=== PATIENT | male | born 1975 | race African-American/Black ===

== ENCOUNTER 2022-08-18 17:00 | Inpatient (IN) | payer OTHER ==
[2022-08-18 18:44] VITALS: BMI 25.8
[2022-08-18] MEDS ORDERED: IBUPROFEN 400 MG TABLET (FP) PO PRN (20:20)
[2022-08-18] MEDS ORDERED: MAGNESIUM HYDROX 2400MG/30ML ORAL SUSPENSION 30 ML CUP PO PRN (20:20)
[2022-08-18] MEDS ORDERED: ONDANSETRON *ODT* 4 MG TABLET SL PRN (20:20)
[2022-08-18] MEDS ORDERED: guaiFENesin 200 MG/10 ML 10 ML UNIT-DOSE CUPS PO PRN (20:20)
[2022-08-18] MEDS ORDERED: ACETAMINOPHEN 325 MG TABLET (FP) PO PRN ×2 (20:20)
[2022-08-18] MEDS ORDERED: BENZOCAINE/MENTHOL (CHLORASEPTIC ) LOZENGE MM PRN (20:20)
[2022-08-18] MEDS ORDERED: BISMUTH SUBSALICYLATE 524 MG/30 ML PO PRN (20:20)
[2022-08-18] MEDS ORDERED: P-EPHED 60MG/TRIPROLIDI 2.5MG TABLET PO PRN (20:20)
[2022-08-18] MEDS ORDERED: LOPERAMIDE HCL 2 MG CAPSULE PO PRN (20:20)
[2022-08-18] MEDS ORDERED: DICYCLOMINE HCL 10 MG CAPSULE PO PRN (20:20)
[2022-08-18] MEDS ORDERED: MAGNESIUM CITRATE 300 ML BOTTLE PO PRN (20:20)
[2022-08-18] MEDS ORDERED: MAG HYDROX/AL HYDROX/SIMETH 30 ML UNIT-DOSE CUP PO PRN (20:20)
[2022-08-18] MEDS ORDERED: THIAMINE HCL 100 MG TABLET (FP) PO SCH (22:00)
[2022-08-18] MEDS ORDERED: diazePAM 5 MG TABLET PO SCH (23:00)
[2022-08-19] MEDS: THIAMINE HCL 100 MG TABLET (FP) PO SCH ×2 (01:55→22:39)
[2022-08-19] MEDS: METHOCARBAMOL 500 MG TABLET PO PRN (01:55)
[2022-08-19] MEDS: diazePAM 5 MG TABLET PO SCH ×4 (02:13→19:21)
[2022-08-19] MEDS: IBUPROFEN 600 MG TABLET (FP) PO PRN (02:14)
[2022-08-19] MEDS: PRENATAL VITAMINS W/ FOLIC ACID TABLET (FP) PO SCH (10:05)
[2022-08-19] MEDS: NICOTINE 7 MG/24 HOURS TOPICAL PATCH TD PRN (10:06)
[2022-08-19 10:52] LABS: HEMATOCRIT 34.3 % (35.4-49); HEMOGLOBIN 11.1 GM/dL (11.7-16.9); MCH 31.3 pg (25.7-33.7); MCHC 32.3 g/dl (32.0-35.9); MEAN CELL VOLUME 97.1 fl (80-96); MEAN PLT VOLUME 8.1 fl (7.5-11.1); PLATELET COUNT 460 10^3/uL (134-434); RBC 3.53 M/mm3 (4.00-5.60); RDW 16.2 % (11.9-15.9)
[2022-08-19] MEDS: NICOTINE 10 MG CARTRIDGE (INHALER) IH PRN ×2 (11:12→15:14)
[2022-08-19 11:35] LABS: CALCIUM 9.3 mg/dL (8.5-10.1)
[2022-08-19 11:36] LABS: ALBUMIN 3.4 g/dl (3.4-5.0); BLOOD UREA NITROGEN 16.7 mg/dL (7-18)
[2022-08-19 11:40] LABS: BILIRUBIN,TOTAL 0.3 mg/dL (0.2-1); TOT PROT 6.9 g/dl (6.4-8.2)
[2022-08-19] MEDS ORDERED: TRIMETHOBENZAMIDE HCL 200MG/2ML INJ IM PRN (13:36)
[2022-08-19] MEDS: diazePAM 5 MG TABLET PO PRN (15:12)
[2022-08-19] MEDS: MELATONIN 5 MG TABLETS PO PRN (22:39)
[2022-08-20] MEDS: diazePAM 5 MG TABLET PO SCH ×4 (02:03→22:52)
[2022-08-20] MEDS: NICOTINE 10 MG CARTRIDGE (INHALER) IH PRN ×2 (05:31→13:35)
[2022-08-20] MEDS: PRENATAL VITAMINS W/ FOLIC ACID TABLET (FP) PO SCH (12:04)
[2022-08-20] MEDS: NICOTINE 7 MG/24 HOURS TOPICAL PATCH TD PRN (15:58)
[2022-08-20] MEDS: METHOCARBAMOL 500 MG TABLET PO PRN (17:54)
[2022-08-20] MEDS: hydrOXYzine PAMOATE 25 MG CAPSULE (FP) PO PRN (17:54)
[2022-08-20] MEDS: IBUPROFEN 600 MG TABLET (FP) PO PRN (17:54)
[2022-08-20] MEDS: THIAMINE HCL 100 MG TABLET (FP) PO SCH (22:52)
[2022-08-20] MEDS: MELATONIN 5 MG TABLETS PO PRN (22:52)
[2022-08-21] MEDS: diazePAM 5 MG TABLET PO SCH ×2 (07:16→17:40)
[2022-08-21] MEDS: diazePAM 5 MG TABLET PO PRN (10:44)
[2022-08-21] MEDS: PRENATAL VITAMINS W/ FOLIC ACID TABLET (FP) PO SCH (10:44)
[2022-08-21] MEDS: hydrOXYzine PAMOATE 25 MG CAPSULE (FP) PO PRN ×3 (10:46→20:50)
[2022-08-21] MEDS: NICOTINE 10 MG CARTRIDGE (INHALER) IH PRN (13:00)
[2022-08-21] MEDS: METHOCARBAMOL 500 MG TABLET PO PRN (20:50)
[2022-08-21] MEDS: THIAMINE HCL 100 MG TABLET (FP) PO SCH (21:03)
[2022-08-21] MEDS: MELATONIN 5 MG TABLETS PO PRN (21:03)
[2022-08-21 22:18] VITALS: RESP 18
[2022-08-22] MEDS ORDERED: diazePAM 5 MG TABLET PO ONE (06:00)
[2022-08-22] MEDS: PRENATAL VITAMINS W/ FOLIC ACID TABLET (FP) PO SCH (09:38)
[2022-08-22] MEDS: METHOCARBAMOL 500 MG TABLET PO PRN (09:40)
[2022-08-22] MEDS: NICOTINE 10 MG CARTRIDGE (INHALER) IH PRN (10:26)
[2022-08-22] MEDS: NICOTINE 7 MG/24 HOURS TOPICAL PATCH TD PRN (10:27)
[2022-08-22 13:00] VITALS: BP 124/81; PULSE 104; TEMP 98.1
== END 2022-08-22 13:36 | disposition other institution (70) | DRG 775 ==
LOC: YASAS 17:00 → Y3N 08-19 01:02
PROVIDERS: ADMIT Allergy & Immunology; ATTEND Surgery
PROC: HZ2ZZZZ Detoxification Services for Substance Abuse Treatment (ICD-10-PCS; principal; 2022-08-19)
DX: F10.230 Alcohol dependence with withdrawal, uncomplicated (principal); F17.210 Nicotine dependence, cigarettes, uncomplicated; I10 Essential (primary) hypertension; G62.1 Alcoholic polyneuropathy; S69.81XA Other specified injuries of right wrist, hand and finger(s), initial encounter; S69.82XA Other specified injuries of left wrist, hand and finger(s), initial encounter; Y04.0XXA Assault by unarmed brawl or fight, initial encounter; Y92.239 Unspecified place in hospital as the place of occurrence of the external cause
CPT/HCPCS: 36415; 73030-TC-RT-FY; 73110-TC-LT-FY; 80053; 85027; 86780; C9803-CS; Q0162; U0003; U0005

== ENCOUNTER 2022-08-23 09:07 | Inpatient (IN) | payer OTHER ==
[2022-08-23 09:37] VITALS: BMI 26.4
[2022-08-23] MEDS ORDERED: MAGNESIUM CITRATE 300 ML BOTTLE PO PRN (10:22)
[2022-08-23] MEDS ORDERED: LOPERAMIDE HCL 2 MG CAPSULE PO PRN (10:22)
[2022-08-23] MEDS ORDERED: MAGNESIUM HYDROX 2400MG/30ML ORAL SUSPENSION 30 ML CUP PO PRN (10:22)
[2022-08-23] MEDS ORDERED: MAG HYDROX/AL HYDROX/SIMETH 30 ML UNIT-DOSE CUP PO PRN (10:22)
[2022-08-23] MEDS ORDERED: guaiFENesin 200 MG/10 ML 10 ML UNIT-DOSE CUPS PO PRN (10:22)
[2022-08-23] MEDS ORDERED: P-EPHED 60MG/TRIPROLIDI 2.5MG TABLET PO PRN (10:22)
[2022-08-23] MEDS ORDERED: METHYL SALICYLATE/MENTHOL OINT 30 GM TUBE TP PRN (10:28)
[2022-08-23] MEDS ORDERED: COLLOIDAL OATMEAL 1 BAR EACH TP PRN (10:34)
[2022-08-23] MEDS ORDERED: hydrOXYzine PAMOATE 25 MG CAPSULE (FP) PO ONE (11:47)
[2022-08-23] MEDS ORDERED: IBUPROFEN 400 MG TABLET (FP) PO ONE (11:47)
[2022-08-23] MEDS: IBUPROFEN 400 MG TABLET (FP) PO PRN (11:59)
[2022-08-23] MEDS: hydrOXYzine PAMOATE 25 MG CAPSULE (FP) PO PRN (12:00)
[2022-08-23] MEDS: NICOTINE 21 MG/24 HOURS TOPICAL PATCH TD SCH (14:47)
[2022-08-23] MEDS: THIAMINE HCL 100 MG TABLET (FP) PO SCH (21:08)
[2022-08-23] MEDS: MELATONIN 5 MG TABLETS PO SCH (21:08)
[2022-08-24 03:56] LABS: EPI CELLS 5 /uL (0-25.1); HYALINE CASTS 0 /uL (0-3.1); PH,URINE 5.5 (5.0-8.0); URINE APPEARANCE CLEAR; URINE BACTERIA 28 /uL (0-1359); URINE BILIRUBIN NEGATIVE (NEGATIVE); URINE COLOR YELLOW; URINE GLUCOSE (UA) NEGATIVE (NEGATIVE); URINE KETONE NEGATIVE (NEGATIVE); URINE LEUK ESTERASE TRACE (NEGATIVE); URINE NITRITE NEGATIVE (NEGATIVE); URINE PROTEIN NEGATIVE (NEGATIVE); URINE RBC 0 /uL (0-23.9); URINE UROBILINOGEN 0.2 mg/dL (0.2-1.0); URINE WBC 13 /uL (0-25.8)
[2022-08-24] MEDS: NICOTINE 21 MG/24 HOURS TOPICAL PATCH TD SCH (09:06)
[2022-08-24] MEDS: PRENATAL VITAMINS W/ FOLIC ACID TABLET (FP) PO SCH (09:06)
[2022-08-24 12:23] LABS: ALBUMIN 3.6 g/dl (3.4-5.0); BLOOD UREA NITROGEN 16.1 mg/dL (7-18); CALCIUM 9.5 mg/dL (8.5-10.1)
[2022-08-24 12:27] LABS: BILIRUBIN,TOTAL 0.2 mg/dL (0.2-1); CREATININE 0.8 mg/dL (0.55-1.3); TOT PROT 7.2 g/dl (6.4-8.2)
[2022-08-24 12:32] LABS: HEMATOCRIT 33.7 % (35.4-49); HEMOGLOBIN 11.4 GM/dL (11.7-16.9); MCH 32.5 pg (25.7-33.7); MCHC 33.7 g/dl (32.0-35.9); MEAN CELL VOLUME 96.4 fl (80-96); MEAN PLT VOLUME 8.7 fl (7.5-11.1); PLATELET COUNT 429 10^3/uL (134-434); RDW 15.5 % (11.9-15.9); WHITE BLOOD COUNT 6.1 K/mm3 (4.0-10.0)
[2022-08-24 14:49] LABS: SYPHILIS W/ RPR CONF NON-REACTIVE (NONREACTIVE)
[2022-08-24] MEDS: NICOTINE 10 MG CARTRIDGE (INHALER) IH PRN (15:42)
[2022-08-24] MEDS: MELATONIN 5 MG TABLETS PO SCH (23:57)
[2022-08-24] MEDS: THIAMINE HCL 100 MG TABLET (FP) PO SCH (23:58)
[2022-08-25] MEDS: hydrOXYzine PAMOATE 25 MG CAPSULE (FP) PO PRN ×2 (01:29→21:17)
[2022-08-25] MEDS: IBUPROFEN 400 MG TABLET (FP) PO PRN (01:33)
[2022-08-25] MEDS ORDERED: COLLOIDAL OATMEAL 1 EACH PACKET TP ONE (08:23)
[2022-08-25] MEDS: NICOTINE 10 MG CARTRIDGE (INHALER) IH PRN (09:04)
[2022-08-25] MEDS: PRENATAL VITAMINS W/ FOLIC ACID TABLET (FP) PO SCH (09:49)
[2022-08-25] MEDS: NICOTINE 21 MG/24 HOURS TOPICAL PATCH TD SCH (09:50)
[2022-08-25] MEDS: ACETAMINOPHEN 325 MG TABLET (FP) PO PRN ×2 (09:51→21:18)
[2022-08-25 16:19] LABS: HIV INTERPRETATION NEGATIVE (NEGATIVE)
[2022-08-25] MEDS: MELATONIN 5 MG TABLETS PO SCH (21:16)
[2022-08-25] MEDS: THIAMINE HCL 100 MG TABLET (FP) PO SCH (21:16)
[2022-08-26] MEDS: PRENATAL VITAMINS W/ FOLIC ACID TABLET (FP) PO SCH (09:11)
[2022-08-26] MEDS: NICOTINE 21 MG/24 HOURS TOPICAL PATCH TD SCH (09:11)
[2022-08-26] MEDS: ACETAMINOPHEN 325 MG TABLET (FP) PO PRN (09:12)
[2022-08-26] MEDS ORDERED: FUROSEMIDE 20 MG TABLET (FP) PO SCH (14:00)
[2022-08-26] MEDS: NICOTINE 10 MG CARTRIDGE (INHALER) IH PRN ×2 (17:49→22:17)
[2022-08-26] MEDS: THIAMINE HCL 100 MG TABLET (FP) PO SCH (22:15)
[2022-08-26] MEDS: MELATONIN 5 MG TABLETS PO SCH (22:16)
[2022-08-26] MEDS: hydrOXYzine PAMOATE 25 MG CAPSULE (FP) PO PRN (22:16)
[2022-08-27] MEDS: IBUPROFEN 400 MG TABLET (FP) PO PRN (07:37)
[2022-08-27] MEDS: NICOTINE 21 MG/24 HOURS TOPICAL PATCH TD SCH (10:23)
[2022-08-27] MEDS: METOPROLOL TARTRATE 50 MG TABLET (FP) PO SCH (10:24)
[2022-08-27] MEDS: PRENATAL VITAMINS W/ FOLIC ACID TABLET (FP) PO SCH (10:24)
[2022-08-27] MEDS: NICOTINE 10 MG CARTRIDGE (INHALER) IH PRN (10:25)
[2022-08-27] MEDS: MELATONIN 5 MG TABLETS PO SCH (21:14)
[2022-08-27] MEDS: hydrOXYzine PAMOATE 25 MG CAPSULE (FP) PO PRN (21:14)
[2022-08-27] MEDS: THIAMINE HCL 100 MG TABLET (FP) PO SCH (21:14)
[2022-08-28] MEDS: NICOTINE 21 MG/24 HOURS TOPICAL PATCH TD SCH (10:10)
[2022-08-28] MEDS: METOPROLOL TARTRATE 50 MG TABLET (FP) PO SCH (10:10)
[2022-08-28] MEDS: PRENATAL VITAMINS W/ FOLIC ACID TABLET (FP) PO SCH (10:10)
[2022-08-28] MEDS: IBUPROFEN 400 MG TABLET (FP) PO PRN (10:17)
[2022-08-28] MEDS: NICOTINE 10 MG CARTRIDGE (INHALER) IH PRN (10:19)
[2022-08-28] MEDS ORDERED: LIDOCAINE 5% TOPICAL PATCH TP SCH (11:30)
[2022-08-28] MEDS: hydrOXYzine PAMOATE 25 MG CAPSULE (FP) PO PRN ×2 (13:19→21:27)
[2022-08-28] MEDS: MELATONIN 5 MG TABLETS PO SCH (21:27)
[2022-08-28] MEDS: THIAMINE HCL 100 MG TABLET (FP) PO SCH (21:27)
[2022-08-28] MEDS ORDERED: LIDOCAINE PATCH REMOVAL MC SCH (22:00)
[2022-08-29] MEDS: IBUPROFEN 400 MG TABLET (FP) PO PRN (06:37)
[2022-08-29] MEDS ORDERED: LIDOCAINE PATCH REMOVAL MC SCH ×3 (08:40→22:00)
[2022-08-29] MEDS: NICOTINE 21 MG/24 HOURS TOPICAL PATCH TD SCH (09:59)
[2022-08-29] MEDS ORDERED: LIDOCAINE 5% TOPICAL PATCH TP SCH ×3 (10:00→12:00)
[2022-08-29] MEDS: METOPROLOL TARTRATE 50 MG TABLET (FP) PO SCH (10:00)
[2022-08-29] MEDS: PRENATAL VITAMINS W/ FOLIC ACID TABLET (FP) PO SCH (10:00)
[2022-08-29] MEDS: ACETAMINOPHEN 325 MG TABLET (FP) PO PRN (10:01)
[2022-08-29] MEDS: NICOTINE 10 MG CARTRIDGE (INHALER) IH PRN ×2 (10:02→21:12)
[2022-08-29] MEDS: LIDOCAINE PATCH REMOVAL MC SCH (21:11)
[2022-08-29] MEDS: DOCUSATE SODIUM 100 MG CAPSULE (FP) PO PRN (21:11)
[2022-08-29] MEDS: MELATONIN 5 MG TABLETS PO SCH (21:11)
[2022-08-29] MEDS: hydrOXYzine PAMOATE 25 MG CAPSULE (FP) PO PRN (21:11)
[2022-08-29] MEDS: THIAMINE HCL 100 MG TABLET (FP) PO SCH (21:11)
[2022-08-30] MEDS: LIDOCAINE 5% TOPICAL PATCH TP SCH (10:00)
[2022-08-30] MEDS: NICOTINE 21 MG/24 HOURS TOPICAL PATCH TD SCH (10:00)
[2022-08-30] MEDS: METOPROLOL TARTRATE 50 MG TABLET (FP) PO SCH (10:00)
[2022-08-30] MEDS: PRENATAL VITAMINS W/ FOLIC ACID TABLET (FP) PO SCH (10:01)
[2022-08-30] MEDS: ACETAMINOPHEN 325 MG TABLET (FP) PO PRN (10:02)
[2022-08-30] MEDS: hydrOXYzine PAMOATE 25 MG CAPSULE (FP) PO PRN ×2 (10:02→21:17)
[2022-08-30] MEDS: NICOTINE 10 MG CARTRIDGE (INHALER) IH PRN ×2 (10:03→21:19)
[2022-08-30] MEDS: MELATONIN 5 MG TABLETS PO SCH (21:16)
[2022-08-30] MEDS: LIDOCAINE PATCH REMOVAL MC SCH (21:16)
[2022-08-30] MEDS: SENNOSIDES 8.6MG TABLET (FP) PO PRN (21:17)
[2022-08-30] MEDS: THIAMINE HCL 100 MG TABLET (FP) PO SCH (21:17)
[2022-08-30] MEDS: IBUPROFEN 400 MG TABLET (FP) PO PRN (21:18)
[2022-08-31] MEDS: NICOTINE 10 MG CARTRIDGE (INHALER) IH PRN ×2 (08:51→17:33)
[2022-08-31] MEDS: METOPROLOL TARTRATE 50 MG TABLET (FP) PO SCH (09:52)
[2022-08-31] MEDS: PRENATAL VITAMINS W/ FOLIC ACID TABLET (FP) PO SCH (09:52)
[2022-08-31] MEDS: LIDOCAINE 5% TOPICAL PATCH TP SCH (09:52)
[2022-08-31] MEDS: NICOTINE 21 MG/24 HOURS TOPICAL PATCH TD SCH (09:52)
[2022-08-31] MEDS: IBUPROFEN 400 MG TABLET (FP) PO PRN ×2 (09:56→21:24)
[2022-08-31] MEDS: THIAMINE HCL 100 MG TABLET (FP) PO SCH (21:25)
[2022-08-31] MEDS: SENNOSIDES 8.6MG TABLET (FP) PO PRN (21:25)
[2022-08-31] MEDS: hydrOXYzine PAMOATE 25 MG CAPSULE (FP) PO PRN (21:25)
[2022-08-31] MEDS: LIDOCAINE PATCH REMOVAL MC SCH (21:27)
[2022-08-31] MEDS: MIRTAZAPINE 15 MG TABLET (FP) PO SCH (21:27)
[2022-08-31] MEDS: MELATONIN 5 MG TABLETS PO SCH (23:05)
[2022-09-01] MEDS: NICOTINE 21 MG/24 HOURS TOPICAL PATCH TD SCH (09:48)
[2022-09-01] MEDS: LIDOCAINE 5% TOPICAL PATCH TP SCH (09:48)
[2022-09-01] MEDS: METOPROLOL TARTRATE 50 MG TABLET (FP) PO SCH (09:48)
[2022-09-01] MEDS: PRENATAL VITAMINS W/ FOLIC ACID TABLET (FP) PO SCH (09:48)
[2022-09-01] MEDS: IBUPROFEN 400 MG TABLET (FP) PO PRN (09:49)
[2022-09-01] MEDS: NICOTINE 10 MG CARTRIDGE (INHALER) IH PRN (18:20)
[2022-09-01] MEDS: DOCUSATE SODIUM 100 MG CAPSULE (FP) PO PRN (21:11)
[2022-09-01] MEDS: MIRTAZAPINE 15 MG TABLET (FP) PO SCH (21:12)
[2022-09-01] MEDS: THIAMINE HCL 100 MG TABLET (FP) PO SCH (21:12)
[2022-09-01] MEDS: SENNOSIDES 8.6MG TABLET (FP) PO PRN (21:12)
[2022-09-01] MEDS: hydrOXYzine PAMOATE 25 MG CAPSULE (FP) PO PRN (21:12)
[2022-09-01] MEDS: LIDOCAINE PATCH REMOVAL MC SCH (21:13)
[2022-09-02] MEDS: LIDOCAINE 5% TOPICAL PATCH TP SCH (09:42)
[2022-09-02] MEDS: NICOTINE 21 MG/24 HOURS TOPICAL PATCH TD SCH (09:43)
[2022-09-02] MEDS: PRENATAL VITAMINS W/ FOLIC ACID TABLET (FP) PO SCH (09:43)
[2022-09-02] MEDS: METOPROLOL TARTRATE 50 MG TABLET (FP) PO SCH (09:46)
[2022-09-02] MEDS: IBUPROFEN 400 MG TABLET (FP) PO PRN (09:47)
[2022-09-02] MEDS: NICOTINE 10 MG CARTRIDGE (INHALER) IH PRN ×2 (16:26→21:22)
[2022-09-02] MEDS: THIAMINE HCL 100 MG TABLET (FP) PO SCH (21:21)
[2022-09-02] MEDS: DOCUSATE SODIUM 100 MG CAPSULE (FP) PO PRN (21:21)
[2022-09-02] MEDS: LIDOCAINE PATCH REMOVAL MC SCH (21:21)
[2022-09-02] MEDS: MIRTAZAPINE 15 MG TABLET (FP) PO SCH (21:21)
[2022-09-02] MEDS: hydrOXYzine PAMOATE 25 MG CAPSULE (FP) PO PRN (21:21)
[2022-09-03] MEDS: LIDOCAINE 5% TOPICAL PATCH TP SCH (09:06)
[2022-09-03] MEDS: PRENATAL VITAMINS W/ FOLIC ACID TABLET (FP) PO SCH (09:07)
[2022-09-03] MEDS: NICOTINE 21 MG/24 HOURS TOPICAL PATCH TD SCH (09:07)
[2022-09-03] MEDS: IBUPROFEN 400 MG TABLET (FP) PO PRN ×2 (09:07→21:03)
[2022-09-03] MEDS: METOPROLOL TARTRATE 50 MG TABLET (FP) PO SCH (09:07)
[2022-09-03] MEDS: NICOTINE 10 MG CARTRIDGE (INHALER) IH PRN ×4 (09:54→21:05)
[2022-09-03] MEDS: LIDOCAINE PATCH REMOVAL MC SCH (21:02)
[2022-09-03] MEDS: THIAMINE HCL 100 MG TABLET (FP) PO SCH (21:03)
[2022-09-03] MEDS: MIRTAZAPINE 15 MG TABLET (FP) PO SCH (21:03)
[2022-09-03] MEDS: hydrOXYzine PAMOATE 25 MG CAPSULE (FP) PO PRN (21:04)
[2022-09-04] MEDS: LIDOCAINE 5% TOPICAL PATCH TP SCH (10:06)
[2022-09-04] MEDS: PRENATAL VITAMINS W/ FOLIC ACID TABLET (FP) PO SCH (10:06)
[2022-09-04] MEDS: METOPROLOL TARTRATE 50 MG TABLET (FP) PO SCH (10:06)
[2022-09-04] MEDS: NICOTINE 21 MG/24 HOURS TOPICAL PATCH TD SCH (10:06)
[2022-09-04] MEDS: IBUPROFEN 400 MG TABLET (FP) PO PRN ×2 (10:07→21:16)
[2022-09-04 10:08] VITALS: RESP 18
[2022-09-04] MEDS: NICOTINE 10 MG CARTRIDGE (INHALER) IH PRN ×2 (10:38→16:34)
[2022-09-04] MEDS: MIRTAZAPINE 15 MG TABLET (FP) PO SCH (21:13)
[2022-09-04] MEDS: THIAMINE HCL 100 MG TABLET (FP) PO SCH (21:13)
[2022-09-04] MEDS: hydrOXYzine PAMOATE 25 MG CAPSULE (FP) PO PRN (21:15)
[2022-09-04] MEDS: LIDOCAINE PATCH REMOVAL MC SCH (21:16)
[2022-09-05 08:32] VITALS: BP 129/86; PULSE 82
[2022-09-05 08:38] VITALS: TEMP 98.2
[2022-09-05] MEDS: NICOTINE 10 MG CARTRIDGE (INHALER) IH PRN (08:54)
[2022-09-05] MEDS: NICOTINE 21 MG/24 HOURS TOPICAL PATCH TD SCH (09:38)
[2022-09-05] MEDS: PRENATAL VITAMINS W/ FOLIC ACID TABLET (FP) PO SCH (09:38)
[2022-09-05] MEDS: LIDOCAINE 5% TOPICAL PATCH TP SCH (09:38)
[2022-09-05] MEDS: METOPROLOL TARTRATE 50 MG TABLET (FP) PO SCH (09:38)
[2022-09-05] MEDS: IBUPROFEN 400 MG TABLET (FP) PO PRN (09:40)
== END 2022-09-05 09:55 | disposition home or self-care (01) | DRG 772 ==
LOC: YASAS 09:07 → Y3E 11:01
PROVIDERS: ADMIT Allergy & Immunology; ATTEND Psychiatry & Neurology Pain Medicine
PROC: HZ42ZZZ Group Counseling for Substance Abuse Treatment, Cognitive-Behavioral (ICD-10-PCS; principal; 2022-08-23)
DX: F10.20 Alcohol dependence, uncomplicated (principal); F17.210 Nicotine dependence, cigarettes, uncomplicated; F19.280 Other psychoactive substance dependence with psychoactive substance-induced anxiety disorder; F19.282 Other psychoactive substance dependence with psychoactive substance-induced sleep disorder; F19.24 Other psychoactive substance dependence with psychoactive substance-induced mood disorder; G62.1 Alcoholic polyneuropathy; K59.00 Constipation, unspecified; M25.511 Pain in right shoulder; M25.512 Pain in left shoulder; G89.29 Other chronic pain; R60.0 Localized edema; R07.9 Chest pain, unspecified; Z99.89 Dependence on other enabling machines and devices
CPT/HCPCS: 36415; 80053; 81003; 85027; 86780; 86803; 87389; 93005; 93010; C9803-CS; U0003; U0005

== ENCOUNTER 2022-08-24 18:07 | Emergency (ER) | payer OTHER ==
[2022-08-24 18:32] VITALS: TEMP 98.2; BMI 26.4
[2022-08-24] MEDS ORDERED: ASPIRIN 81 MG CHEWABLE TABLETS PO ONE (19:58)
[2022-08-24] MEDS ORDERED: ASPIRIN 81 MG CHEWABLE TABLETS ONE (20:07)
[2022-08-24 23:50] VITALS: BP 140/91; PULSE 87; RESP 16
== END 2022-08-24 23:51 | disposition home or self-care (01) ==
LOC: JER 18:07
DX: R07.9 Chest pain, unspecified (principal)
CPT/HCPCS: 36415; 71046-TC-FY; 84484; 93005; 93010; 99284-25

== ENCOUNTER 2022-11-13 12:10 | Inpatient (IN) | payer OTHER ==
[2022-11-13 14:27] VITALS: BMI 30.8
[2022-11-13] MEDS ORDERED: guaiFENesin 200 MG/10 ML 10 ML UNIT-DOSE CUPS PO PRN (14:30)
[2022-11-13] MEDS ORDERED: MAG HYDROX/AL HYDROX/SIMETH 30 ML UNIT-DOSE CUP PO PRN (14:30)
[2022-11-13] MEDS ORDERED: P-EPHED 60MG/TRIPROLIDI 2.5MG TABLET PO PRN (14:30)
[2022-11-13] MEDS ORDERED: LOPERAMIDE HCL 2 MG CAPSULE PO PRN (14:30)
[2022-11-13] MEDS ORDERED: POLYETHYLENE GLYCOL (HEALTHYLAX) 3350 17 GM PACKET PO PRN (14:30)
[2022-11-13] MEDS ORDERED: BENZOCAINE/MENTHOL (CHLORASEPTIC ) LOZENGE MM PRN (14:30)
[2022-11-13] MEDS: ACETAMINOPHEN 325 MG TABLET (FP) PO PRN (15:40)
[2022-11-13] MEDS ORDERED: ACETAMINOPHEN 325 MG TABLET (FP) ONE (15:43)
[2022-11-13 17:06] LABS: HEMATOCRIT 36.6 % (35.4-49); MCH 30.5 pg (25.7-33.7); MCHC 32.7 g/dl (32.0-35.9); MEAN CELL VOLUME 93.3 fl (80-96); MEAN PLT VOLUME 7.9 fl (7.5-11.1); PLATELET COUNT 519 10^3/uL (134-434); RBC 3.92 M/mm3 (4.00-5.60); RDW 17.2 % (11.9-15.9); WHITE BLOOD COUNT 4.6 K/mm3 (4.0-10.0)
[2022-11-13 17:23] LABS: CALCIUM 9.5 mg/dL (8.5-10.1)
[2022-11-13 17:24] LABS: BLOOD UREA NITROGEN 14.9 mg/dL (7-18)
[2022-11-13 17:28] LABS: BILIRUBIN,TOTAL 0.1 mg/dL (0.2-1); TOT PROT 7.7 g/dl (6.4-8.2)
[2022-11-13 17:49] LABS: SYPHILIS W/ RPR CONF NON-REACTIVE (NONREACTIVE)
[2022-11-13] MEDS ORDERED: TUBERCULIN PPD 5 TU/0.1ML VIAL ID ONE (19:20)
[2022-11-13] MEDS: METOPROLOL TARTRATE 25 MG TABLET (FP) PO SCH (19:30)
[2022-11-13] MEDS: PRENATAL VITAMINS W/ FOLIC ACID TABLET (FP) PO SCH (19:34)
[2022-11-13] MEDS: NICOTINE 14 MG/24 HOURS TOPICAL PATCH TD SCH (19:35)
[2022-11-13] MEDS: NICOTINE 10 MG CARTRIDGE (INHALER) IH PRN (21:13)
[2022-11-13] MEDS: MELATONIN 5 MG TABLETS PO SCH (21:13)
[2022-11-13] MEDS: THIAMINE HCL 100 MG TABLET (FP) PO SCH (21:13)
[2022-11-13] MEDS: hydrOXYzine PAMOATE 25 MG CAPSULE (FP) PO PRN (21:13)
[2022-11-14] MEDS ORDERED: cloNIDine HCL 0.1 MG TABLET PO ONE (07:30)
[2022-11-14] MEDS: IBUPROFEN 400 MG TABLET (FP) PO PRN (09:31)
[2022-11-14] MEDS: METOPROLOL TARTRATE 25 MG TABLET (FP) PO SCH (09:31)
[2022-11-14] MEDS: PRENATAL VITAMINS W/ FOLIC ACID TABLET (FP) PO SCH (09:31)
[2022-11-14] MEDS: NICOTINE 14 MG/24 HOURS TOPICAL PATCH TD SCH (09:34)
[2022-11-14] MEDS: hydrOXYzine PAMOATE 25 MG CAPSULE (FP) PO PRN ×2 (09:34→21:12)
[2022-11-14 11:40] LABS: EPI CELLS 5 /uL (0-25.1); HYALINE CASTS 0 /uL (0-3.1); URINE APPEARANCE CLEAR; URINE BACTERIA 55 /uL (0-1359); URINE BILIRUBIN NEGATIVE (NEGATIVE); URINE COLOR YELLOW; URINE GLUCOSE (UA) NEGATIVE (NEGATIVE); URINE KETONE NEGATIVE (NEGATIVE); URINE LEUK ESTERASE TRACE (NEGATIVE); URINE NITRITE NEGATIVE (NEGATIVE); URINE PROTEIN NEGATIVE (NEGATIVE); URINE RBC 4 /uL (0-23.9); URINE UROBILINOGEN 0.2 mg/dL (0.2-1.0); URINE WBC 29 /uL (0-25.8)
[2022-11-14] MEDS: NICOTINE 10 MG CARTRIDGE (INHALER) IH PRN ×3 (13:32→21:12)
[2022-11-14] MEDS: cloNIDine HCL 0.1 MG TABLET PO PRN (14:26)
[2022-11-14] MEDS: THIAMINE HCL 100 MG TABLET (FP) PO SCH (21:11)
[2022-11-14] MEDS: MELATONIN 5 MG TABLETS PO SCH (21:11)
[2022-11-15] MEDS: PRENATAL VITAMINS W/ FOLIC ACID TABLET (FP) PO SCH (10:03)
[2022-11-15] MEDS: NICOTINE 14 MG/24 HOURS TOPICAL PATCH TD SCH (10:03)
[2022-11-15] MEDS: METOPROLOL TARTRATE 25 MG TABLET (FP) PO SCH (10:04)
[2022-11-15] MEDS: IBUPROFEN 400 MG TABLET (FP) PO PRN (10:05)
[2022-11-15] MEDS: NICOTINE 10 MG CARTRIDGE (INHALER) IH PRN ×4 (10:05→21:22)
[2022-11-15] MEDS: hydrOXYzine PAMOATE 25 MG CAPSULE (FP) PO PRN (21:21)
[2022-11-15] MEDS: MELATONIN 5 MG TABLETS PO SCH (21:21)
[2022-11-15] MEDS: THIAMINE HCL 100 MG TABLET (FP) PO SCH (21:21)
[2022-11-16] MEDS: METOPROLOL TARTRATE 25 MG TABLET (FP) PO SCH (10:09)
[2022-11-16] MEDS: PRENATAL VITAMINS W/ FOLIC ACID TABLET (FP) PO SCH (10:09)
[2022-11-16] MEDS: NICOTINE 14 MG/24 HOURS TOPICAL PATCH TD SCH (10:10)
[2022-11-16] MEDS: IBUPROFEN 400 MG TABLET (FP) PO PRN (10:10)
[2022-11-16] MEDS: NICOTINE 10 MG CARTRIDGE (INHALER) IH PRN ×3 (10:55→21:49)
[2022-11-16] MEDS: MAGNESIUM HYDROX 2400MG/30ML ORAL SUSPENSION 30 ML CUP PO PRN (13:20)
[2022-11-16] MEDS: THIAMINE HCL 100 MG TABLET (FP) PO SCH (21:47)
[2022-11-16] MEDS: MELATONIN 5 MG TABLETS PO SCH (21:47)
[2022-11-16] MEDS: hydrOXYzine PAMOATE 25 MG CAPSULE (FP) PO PRN (21:48)
[2022-11-16] MEDS: cloNIDine HCL 0.1 MG TABLET PO PRN (21:49)
[2022-11-17] MEDS: NICOTINE 10 MG CARTRIDGE (INHALER) IH PRN ×3 (09:51→20:35)
[2022-11-17] MEDS: NICOTINE 14 MG/24 HOURS TOPICAL PATCH TD SCH (10:13)
[2022-11-17] MEDS: PRENATAL VITAMINS W/ FOLIC ACID TABLET (FP) PO SCH (10:13)
[2022-11-17] MEDS: METOPROLOL TARTRATE 25 MG TABLET (FP) PO SCH (10:13)
[2022-11-17] MEDS: LIDOCAINE 5% TOPICAL PATCH TP SCH (14:02)
[2022-11-17] MEDS: BACITRACIN 0.9 GM PACKET TP SCH ×2 (14:03→21:38)
[2022-11-17] MEDS: SULFAMETHOXAZOLE/TRIMETHOPRIM 800MG/160MG D.S. TABLET PO SCH (21:38)
[2022-11-17] MEDS: THIAMINE HCL 100 MG TABLET (FP) PO SCH (21:38)
[2022-11-17] MEDS: LIDOCAINE PATCH REMOVAL MC SCH (21:38)
[2022-11-17] MEDS: MELATONIN 5 MG TABLETS PO SCH (21:39)
[2022-11-18] MEDS: SULFAMETHOXAZOLE/TRIMETHOPRIM 800MG/160MG D.S. TABLET PO SCH ×2 (10:26→21:29)
[2022-11-18] MEDS: NICOTINE 14 MG/24 HOURS TOPICAL PATCH TD SCH (10:26)
[2022-11-18] MEDS: PRENATAL VITAMINS W/ FOLIC ACID TABLET (FP) PO SCH (10:26)
[2022-11-18] MEDS: METOPROLOL TARTRATE 25 MG TABLET (FP) PO SCH (10:26)
[2022-11-18] MEDS: BACITRACIN 0.9 GM PACKET TP SCH ×2 (10:26→21:29)
[2022-11-18] MEDS: LIDOCAINE 5% TOPICAL PATCH TP SCH (10:27)
[2022-11-18] MEDS: NICOTINE 10 MG CARTRIDGE (INHALER) IH PRN ×4 (10:28→23:19)
[2022-11-18] MEDS: ACETAMINOPHEN 325 MG TABLET (FP) PO PRN (10:28)
[2022-11-18] MEDS: LIDOCAINE PATCH REMOVAL MC SCH (21:29)
[2022-11-18] MEDS: hydrOXYzine PAMOATE 25 MG CAPSULE (FP) PO PRN (21:30)
[2022-11-18] MEDS: THIAMINE HCL 100 MG TABLET (FP) PO SCH (21:30)
[2022-11-18] MEDS: SUVOREXANT 10 MG TABLET PO PRN (21:31)
[2022-11-19] MEDS: SULFAMETHOXAZOLE/TRIMETHOPRIM 800MG/160MG D.S. TABLET PO SCH ×2 (09:48→22:13)
[2022-11-19] MEDS: PRENATAL VITAMINS W/ FOLIC ACID TABLET (FP) PO SCH (09:48)
[2022-11-19] MEDS: BACITRACIN 0.9 GM PACKET TP SCH ×2 (09:48→22:13)
[2022-11-19] MEDS: IBUPROFEN 400 MG TABLET (FP) PO PRN (09:48)
[2022-11-19] MEDS: NICOTINE 14 MG/24 HOURS TOPICAL PATCH TD SCH (09:49)
[2022-11-19] MEDS: METOPROLOL TARTRATE 25 MG TABLET (FP) PO SCH (09:49)
[2022-11-19] MEDS: LIDOCAINE 5% TOPICAL PATCH TP SCH (09:49)
[2022-11-19] MEDS ORDERED: COLLOIDAL OATMEAL 1 BAR EACH TP PRN (10:27)
[2022-11-19] MEDS: NICOTINE 10 MG CARTRIDGE (INHALER) IH PRN ×2 (15:00→19:21)
[2022-11-19] MEDS: SUVOREXANT 10 MG TABLET PO PRN (22:13)
[2022-11-19] MEDS: THIAMINE HCL 100 MG TABLET (FP) PO SCH (22:13)
[2022-11-19] MEDS: hydrOXYzine PAMOATE 25 MG CAPSULE (FP) PO PRN (22:14)
[2022-11-19] MEDS: LIDOCAINE PATCH REMOVAL MC SCH (23:28)
[2022-11-20] MEDS: hydrOXYzine PAMOATE 25 MG CAPSULE (FP) PO PRN ×2 (10:26→21:26)
[2022-11-20] MEDS: PRENATAL VITAMINS W/ FOLIC ACID TABLET (FP) PO SCH (10:26)
[2022-11-20] MEDS: SULFAMETHOXAZOLE/TRIMETHOPRIM 800MG/160MG D.S. TABLET PO SCH ×2 (10:26→21:24)
[2022-11-20] MEDS: BACITRACIN 0.9 GM PACKET TP SCH ×2 (10:26→21:24)
[2022-11-20] MEDS: METOPROLOL TARTRATE 25 MG TABLET (FP) PO SCH (10:27)
[2022-11-20] MEDS: LIDOCAINE 5% TOPICAL PATCH TP SCH (10:27)
[2022-11-20] MEDS: NICOTINE 14 MG/24 HOURS TOPICAL PATCH TD SCH (10:27)
[2022-11-20] MEDS: NICOTINE 10 MG CARTRIDGE (INHALER) IH PRN ×4 (10:28→23:16)
[2022-11-20] MEDS: LIDOCAINE PATCH REMOVAL MC SCH (21:24)
[2022-11-20] MEDS: THIAMINE HCL 100 MG TABLET (FP) PO SCH (21:24)
[2022-11-20] MEDS: SUVOREXANT 10 MG TABLET PO PRN (21:25)
[2022-11-21] MEDS: METOPROLOL TARTRATE 25 MG TABLET (FP) PO SCH (11:35)
[2022-11-21] MEDS: SULFAMETHOXAZOLE/TRIMETHOPRIM 800MG/160MG D.S. TABLET PO SCH ×2 (11:35→21:36)
[2022-11-21] MEDS: PRENATAL VITAMINS W/ FOLIC ACID TABLET (FP) PO SCH (11:35)
[2022-11-21] MEDS: hydrOXYzine PAMOATE 25 MG CAPSULE (FP) PO PRN (11:36)
[2022-11-21] MEDS: BACITRACIN 0.9 GM PACKET TP SCH ×2 (11:36→21:36)
[2022-11-21] MEDS: NICOTINE 14 MG/24 HOURS TOPICAL PATCH TD SCH (11:36)
[2022-11-21] MEDS: NICOTINE 10 MG CARTRIDGE (INHALER) IH PRN ×3 (11:40→22:25)
[2022-11-21] MEDS: LIDOCAINE 5% TOPICAL PATCH TP SCH (11:45)
[2022-11-21] MEDS: ARTIFICIAL TEARS (POLYVINYL ALCOHOL) OPTH DROPS OU SCH ×2 (15:12→21:37)
[2022-11-21] MEDS: SUVOREXANT 10 MG TABLET PO PRN (21:36)
[2022-11-21] MEDS: THIAMINE HCL 100 MG TABLET (FP) PO SCH (21:36)
[2022-11-21] MEDS: LIDOCAINE PATCH REMOVAL MC SCH (21:37)
[2022-11-22] MEDS: ARTIFICIAL TEARS (POLYVINYL ALCOHOL) OPTH DROPS OU SCH ×3 (07:16→21:40)
[2022-11-22] MEDS: NICOTINE 14 MG/24 HOURS TOPICAL PATCH TD SCH (10:06)
[2022-11-22] MEDS: BACITRACIN 0.9 GM PACKET TP SCH ×2 (10:06→21:40)
[2022-11-22] MEDS: METOPROLOL TARTRATE 25 MG TABLET (FP) PO SCH (10:06)
[2022-11-22] MEDS: SULFAMETHOXAZOLE/TRIMETHOPRIM 800MG/160MG D.S. TABLET PO SCH ×2 (10:06→21:41)
[2022-11-22] MEDS: PRENATAL VITAMINS W/ FOLIC ACID TABLET (FP) PO SCH (10:06)
[2022-11-22] MEDS: LIDOCAINE 5% TOPICAL PATCH TP SCH (10:07)
[2022-11-22] MEDS: NICOTINE 10 MG CARTRIDGE (INHALER) IH PRN ×2 (10:08→22:15)
[2022-11-22] MEDS: THIAMINE HCL 100 MG TABLET (FP) PO SCH (21:41)
[2022-11-22] MEDS: LIDOCAINE PATCH REMOVAL MC SCH (21:42)
[2022-11-22] MEDS: hydrOXYzine PAMOATE 25 MG CAPSULE (FP) PO PRN (21:43)
[2022-11-23] MEDS: ARTIFICIAL TEARS (POLYVINYL ALCOHOL) OPTH DROPS OU SCH ×3 (06:52→21:18)
[2022-11-23] MEDS ORDERED: SUVOREXANT 10 MG TABLET PO PRN (08:51)
[2022-11-23] MEDS: METOPROLOL TARTRATE 25 MG TABLET (FP) PO SCH (10:28)
[2022-11-23] MEDS: NICOTINE 14 MG/24 HOURS TOPICAL PATCH TD SCH (10:29)
[2022-11-23] MEDS: SULFAMETHOXAZOLE/TRIMETHOPRIM 800MG/160MG D.S. TABLET PO SCH ×2 (10:29→21:18)
[2022-11-23] MEDS: LIDOCAINE 5% TOPICAL PATCH TP SCH (10:29)
[2022-11-23] MEDS: BACITRACIN 0.9 GM PACKET TP SCH ×2 (10:29→21:18)
[2022-11-23] MEDS: PRENATAL VITAMINS W/ FOLIC ACID TABLET (FP) PO SCH (10:30)
[2022-11-23] MEDS: MAGNESIUM HYDROX 2400MG/30ML ORAL SUSPENSION 30 ML CUP PO PRN (10:45)
[2022-11-23] MEDS: NICOTINE 10 MG CARTRIDGE (INHALER) IH PRN ×3 (10:46→20:45)
[2022-11-23] MEDS: hydrOXYzine PAMOATE 25 MG CAPSULE (FP) PO PRN (12:09)
[2022-11-23] MEDS: THIAMINE HCL 100 MG TABLET (FP) PO SCH (21:18)
[2022-11-23] MEDS: ACETAMINOPHEN 325 MG TABLET (FP) PO PRN (21:19)
[2022-11-23] MEDS: LIDOCAINE PATCH REMOVAL MC SCH (21:19)
[2022-11-24] MEDS: ARTIFICIAL TEARS (POLYVINYL ALCOHOL) OPTH DROPS OU SCH ×3 (07:08→21:41)
[2022-11-24] MEDS: NICOTINE 10 MG CARTRIDGE (INHALER) IH PRN ×3 (07:14→21:43)
[2022-11-24] MEDS: NICOTINE 14 MG/24 HOURS TOPICAL PATCH TD SCH (10:00)
[2022-11-24] MEDS: BACITRACIN 0.9 GM PACKET TP SCH ×2 (10:00→21:41)
[2022-11-24] MEDS: PRENATAL VITAMINS W/ FOLIC ACID TABLET (FP) PO SCH (10:00)
[2022-11-24] MEDS: METOPROLOL TARTRATE 25 MG TABLET (FP) PO SCH (10:00)
[2022-11-24] MEDS: SULFAMETHOXAZOLE/TRIMETHOPRIM 800MG/160MG D.S. TABLET PO SCH (10:00)
[2022-11-24] MEDS: LIDOCAINE 5% TOPICAL PATCH TP SCH (10:01)
[2022-11-24] MEDS: MAGNESIUM HYDROX 2400MG/30ML ORAL SUSPENSION 30 ML CUP PO PRN (11:58)
[2022-11-24] MEDS: THIAMINE HCL 100 MG TABLET (FP) PO SCH (21:41)
[2022-11-24] MEDS: SUVOREXANT 10 MG TABLET PO PRN (21:42)
[2022-11-24] MEDS: LIDOCAINE PATCH REMOVAL MC SCH (21:42)
[2022-11-24] MEDS: hydrOXYzine PAMOATE 25 MG CAPSULE (FP) PO PRN (21:43)
[2022-11-25] MEDS: ARTIFICIAL TEARS (POLYVINYL ALCOHOL) OPTH DROPS OU SCH ×3 (06:46→21:25)
[2022-11-25] MEDS: NICOTINE 14 MG/24 HOURS TOPICAL PATCH TD SCH (10:01)
[2022-11-25] MEDS: PRENATAL VITAMINS W/ FOLIC ACID TABLET (FP) PO SCH (10:01)
[2022-11-25] MEDS: METOPROLOL TARTRATE 25 MG TABLET (FP) PO SCH (10:01)
[2022-11-25] MEDS: BACITRACIN 0.9 GM PACKET TP SCH ×2 (10:01→21:25)
[2022-11-25] MEDS: hydrOXYzine PAMOATE 25 MG CAPSULE (FP) PO PRN ×2 (10:02→21:26)
[2022-11-25] MEDS: LIDOCAINE 5% TOPICAL PATCH TP SCH (10:02)
[2022-11-25] MEDS: IBUPROFEN 400 MG TABLET (FP) PO PRN ×2 (10:04→21:27)
[2022-11-25] MEDS: NICOTINE 10 MG CARTRIDGE (INHALER) IH PRN ×3 (13:47→23:14)
[2022-11-25] MEDS: THIAMINE HCL 100 MG TABLET (FP) PO SCH (21:25)
[2022-11-25] MEDS: SUVOREXANT 10 MG TABLET PO PRN (21:27)
[2022-11-25] MEDS: LIDOCAINE PATCH REMOVAL MC SCH (21:44)
[2022-11-26] MEDS: ARTIFICIAL TEARS (POLYVINYL ALCOHOL) OPTH DROPS OU SCH ×3 (07:38→21:23)
[2022-11-26] MEDS: NICOTINE 10 MG CARTRIDGE (INHALER) IH PRN ×4 (08:39→23:14)
[2022-11-26] MEDS: hydrOXYzine PAMOATE 25 MG CAPSULE (FP) PO PRN ×2 (10:06→21:24)
[2022-11-26] MEDS: BACITRACIN 0.9 GM PACKET TP SCH ×2 (10:06→21:23)
[2022-11-26] MEDS: METOPROLOL TARTRATE 25 MG TABLET (FP) PO SCH (10:06)
[2022-11-26] MEDS: IBUPROFEN 400 MG TABLET (FP) PO PRN ×2 (10:06→21:22)
[2022-11-26] MEDS: LIDOCAINE 5% TOPICAL PATCH TP SCH (10:07)
[2022-11-26] MEDS: PRENATAL VITAMINS W/ FOLIC ACID TABLET (FP) PO SCH (10:07)
[2022-11-26] MEDS: NICOTINE 14 MG/24 HOURS TOPICAL PATCH TD SCH (10:07)
[2022-11-26] MEDS: THIAMINE HCL 100 MG TABLET (FP) PO SCH (21:21)
[2022-11-26] MEDS: SUVOREXANT 10 MG TABLET PO PRN (21:22)
[2022-11-26] MEDS: LIDOCAINE PATCH REMOVAL MC SCH (21:23)
[2022-11-27] MEDS: ARTIFICIAL TEARS (POLYVINYL ALCOHOL) OPTH DROPS OU SCH ×3 (07:57→21:36)
[2022-11-27] MEDS: PRENATAL VITAMINS W/ FOLIC ACID TABLET (FP) PO SCH (10:56)
[2022-11-27] MEDS: METOPROLOL TARTRATE 25 MG TABLET (FP) PO SCH (10:56)
[2022-11-27] MEDS: BACITRACIN 0.9 GM PACKET TP SCH ×2 (10:57→21:35)
[2022-11-27] MEDS: LIDOCAINE 5% TOPICAL PATCH TP SCH (10:58)
[2022-11-27] MEDS: NICOTINE 14 MG/24 HOURS TOPICAL PATCH TD SCH (10:58)
[2022-11-27] MEDS: hydrOXYzine PAMOATE 25 MG CAPSULE (FP) PO PRN (10:58)
[2022-11-27] MEDS: NICOTINE 10 MG CARTRIDGE (INHALER) IH PRN ×3 (10:59→19:59)
[2022-11-27] MEDS: MAGNESIUM HYDROX 2400MG/30ML ORAL SUSPENSION 30 ML CUP PO PRN (11:28)
[2022-11-27] MEDS: THIAMINE HCL 100 MG TABLET (FP) PO SCH (21:35)
[2022-11-27] MEDS: LIDOCAINE PATCH REMOVAL MC SCH (21:36)
[2022-11-27] MEDS: SUVOREXANT 10 MG TABLET PO PRN (21:38)
[2022-11-27] MEDS: IBUPROFEN 400 MG TABLET (FP) PO PRN (21:39)
[2022-11-28] MEDS: ARTIFICIAL TEARS (POLYVINYL ALCOHOL) OPTH DROPS OU SCH ×3 (07:20→22:45)
[2022-11-28] MEDS: NICOTINE 10 MG CARTRIDGE (INHALER) IH PRN ×4 (07:24→22:30)
[2022-11-28] MEDS: PRENATAL VITAMINS W/ FOLIC ACID TABLET (FP) PO SCH (10:16)
[2022-11-28] MEDS: METOPROLOL TARTRATE 25 MG TABLET (FP) PO SCH (10:17)
[2022-11-28] MEDS: NICOTINE 14 MG/24 HOURS TOPICAL PATCH TD SCH (10:17)
[2022-11-28] MEDS: LIDOCAINE 5% TOPICAL PATCH TP SCH (10:18)
[2022-11-28] MEDS: BACITRACIN 0.9 GM PACKET TP SCH ×2 (10:19→21:23)
[2022-11-28] MEDS: THIAMINE HCL 100 MG TABLET (FP) PO SCH (21:23)
[2022-11-28] MEDS: SUVOREXANT 10 MG TABLET PO PRN (21:23)
[2022-11-28] MEDS: hydrOXYzine PAMOATE 25 MG CAPSULE (FP) PO PRN (21:24)
[2022-11-28] MEDS: IBUPROFEN 400 MG TABLET (FP) PO PRN (22:29)
[2022-11-28] MEDS: LIDOCAINE PATCH REMOVAL MC SCH (22:45)
[2022-11-29] MEDS: ARTIFICIAL TEARS (POLYVINYL ALCOHOL) OPTH DROPS OU SCH ×3 (07:00→21:32)
[2022-11-29] MEDS: IBUPROFEN 400 MG TABLET (FP) PO PRN ×2 (07:01→21:30)
[2022-11-29] MEDS: NICOTINE 10 MG CARTRIDGE (INHALER) IH PRN ×4 (07:02→23:28)
[2022-11-29] MEDS: BACITRACIN 0.9 GM PACKET TP SCH ×2 (10:40→21:30)
[2022-11-29] MEDS: METOPROLOL TARTRATE 25 MG TABLET (FP) PO SCH (10:40)
[2022-11-29] MEDS: NICOTINE 14 MG/24 HOURS TOPICAL PATCH TD SCH (10:41)
[2022-11-29] MEDS: PRENATAL VITAMINS W/ FOLIC ACID TABLET (FP) PO SCH (10:42)
[2022-11-29] MEDS: LIDOCAINE 5% TOPICAL PATCH TP SCH (10:43)
[2022-11-29] MEDS: THIAMINE HCL 100 MG TABLET (FP) PO SCH (21:30)
[2022-11-29] MEDS: hydrOXYzine PAMOATE 25 MG CAPSULE (FP) PO PRN (21:31)
[2022-11-29] MEDS: LIDOCAINE PATCH REMOVAL MC SCH (21:58)
[2022-11-30] MEDS: ARTIFICIAL TEARS (POLYVINYL ALCOHOL) OPTH DROPS OU SCH ×3 (06:22→21:47)
[2022-11-30] MEDS: NICOTINE 10 MG CARTRIDGE (INHALER) IH PRN ×3 (08:43→22:54)
[2022-11-30] MEDS: NICOTINE 14 MG/24 HOURS TOPICAL PATCH TD SCH (09:58)
[2022-11-30] MEDS: PRENATAL VITAMINS W/ FOLIC ACID TABLET (FP) PO SCH (09:58)
[2022-11-30] MEDS: METOPROLOL TARTRATE 25 MG TABLET (FP) PO SCH (09:59)
[2022-11-30] MEDS: BACITRACIN 0.9 GM PACKET TP SCH ×2 (09:59→21:47)
[2022-11-30] MEDS: LIDOCAINE 5% TOPICAL PATCH TP SCH (10:00)
[2022-11-30] MEDS: hydrOXYzine PAMOATE 25 MG CAPSULE (FP) PO PRN ×2 (10:01→21:47)
[2022-11-30] MEDS: IBUPROFEN 400 MG TABLET (FP) PO PRN (21:47)
[2022-11-30] MEDS: THIAMINE HCL 100 MG TABLET (FP) PO SCH (21:47)
[2022-11-30] MEDS: LIDOCAINE PATCH REMOVAL MC SCH (21:48)
[2022-11-30] MEDS ORDERED: SUVOREXANT 15 MG TABLET PO PRN (22:00)
[2022-12-01] MEDS: ARTIFICIAL TEARS (POLYVINYL ALCOHOL) OPTH DROPS OU SCH ×3 (06:12→21:30)
[2022-12-01] MEDS: NICOTINE 10 MG CARTRIDGE (INHALER) IH PRN ×3 (06:12→20:13)
[2022-12-01] MEDS: hydrOXYzine PAMOATE 25 MG CAPSULE (FP) PO PRN ×2 (06:16→21:31)
[2022-12-01] MEDS: PRENATAL VITAMINS W/ FOLIC ACID TABLET (FP) PO SCH (09:57)
[2022-12-01] MEDS: BACITRACIN 0.9 GM PACKET TP SCH ×2 (09:57→21:31)
[2022-12-01] MEDS: METOPROLOL TARTRATE 25 MG TABLET (FP) PO SCH (09:58)
[2022-12-01] MEDS: LIDOCAINE 5% TOPICAL PATCH TP SCH (09:58)
[2022-12-01] MEDS: NICOTINE 14 MG/24 HOURS TOPICAL PATCH TD SCH (09:58)
[2022-12-01] MEDS: LACTULOSE 20 GM/30 ML UDC (FOR ORAL USE ONLY) PO SCH ×5 (09:59→21:32)
[2022-12-01] MEDS: LIDOCAINE PATCH REMOVAL MC SCH (21:31)
[2022-12-01] MEDS: THIAMINE HCL 100 MG TABLET (FP) PO SCH (21:31)
[2022-12-02] MEDS: ARTIFICIAL TEARS (POLYVINYL ALCOHOL) OPTH DROPS OU SCH ×3 (06:23→21:24)
[2022-12-02] MEDS: IBUPROFEN 400 MG TABLET (FP) PO PRN ×2 (06:25→21:24)
[2022-12-02] MEDS: LACTULOSE 20 GM/30 ML UDC (FOR ORAL USE ONLY) PO SCH ×4 (10:47→21:24)
[2022-12-02] MEDS: BACITRACIN 0.9 GM PACKET TP SCH ×2 (10:47→21:22)
[2022-12-02] MEDS: PRENATAL VITAMINS W/ FOLIC ACID TABLET (FP) PO SCH (10:47)
[2022-12-02] MEDS: NICOTINE 14 MG/24 HOURS TOPICAL PATCH TD SCH (10:47)
[2022-12-02] MEDS: LIDOCAINE 5% TOPICAL PATCH TP SCH (10:48)
[2022-12-02] MEDS: METOPROLOL TARTRATE 25 MG TABLET (FP) PO SCH (10:48)
[2022-12-02] MEDS: NICOTINE 10 MG CARTRIDGE (INHALER) IH PRN ×2 (15:15→21:26)
[2022-12-02] MEDS: LIDOCAINE PATCH REMOVAL MC SCH (21:22)
[2022-12-02] MEDS: THIAMINE HCL 100 MG TABLET (FP) PO SCH (21:22)
[2022-12-02] MEDS: hydrOXYzine PAMOATE 25 MG CAPSULE (FP) PO PRN (21:22)
[2022-12-03] MEDS: ARTIFICIAL TEARS (POLYVINYL ALCOHOL) OPTH DROPS OU SCH ×3 (07:58→21:26)
[2022-12-03] MEDS: BACITRACIN 0.9 GM PACKET TP SCH (10:58)
[2022-12-03] MEDS: LACTULOSE 20 GM/30 ML UDC (FOR ORAL USE ONLY) PO SCH ×4 (10:58→21:25)
[2022-12-03] MEDS: IBUPROFEN 400 MG TABLET (FP) PO PRN (10:59)
[2022-12-03] MEDS: METOPROLOL TARTRATE 25 MG TABLET (FP) PO SCH (10:59)
[2022-12-03] MEDS: PRENATAL VITAMINS W/ FOLIC ACID TABLET (FP) PO SCH (10:59)
[2022-12-03] MEDS: NICOTINE 14 MG/24 HOURS TOPICAL PATCH TD SCH (10:59)
[2022-12-03] MEDS: NICOTINE 10 MG CARTRIDGE (INHALER) IH PRN ×2 (11:00→15:06)
[2022-12-03] MEDS: LIDOCAINE 5% TOPICAL PATCH TP SCH (11:01)
[2022-12-03] MEDS: hydrOXYzine PAMOATE 25 MG CAPSULE (FP) PO PRN (11:01)
[2022-12-03] MEDS ORDERED: WITCH HAZEL 50% (TUCKS) 40 PAD/JAR PAD TP PRN (15:40)
[2022-12-03] MEDS: METHOCARBAMOL 500 MG TABLET PO PRN (21:25)
[2022-12-03] MEDS: THIAMINE HCL 100 MG TABLET (FP) PO SCH (21:25)
[2022-12-03] MEDS: LIDOCAINE PATCH REMOVAL MC SCH (21:26)
[2022-12-03] MEDS: HYDROCORTISONE 2.5% TOPICAL CREAM 30 GM TUBE TP SCH (22:55)
[2022-12-04] MEDS: NICOTINE 10 MG CARTRIDGE (INHALER) IH PRN ×3 (00:39→17:26)
[2022-12-04] MEDS: ARTIFICIAL TEARS (POLYVINYL ALCOHOL) OPTH DROPS OU SCH ×3 (07:05→21:37)
[2022-12-04] MEDS: METOPROLOL TARTRATE 25 MG TABLET (FP) PO SCH (10:21)
[2022-12-04] MEDS: LACTULOSE 20 GM/30 ML UDC (FOR ORAL USE ONLY) PO SCH ×4 (10:21→21:37)
[2022-12-04] MEDS: LIDOCAINE 5% TOPICAL PATCH TP SCH ×2 (10:22→15:07)
[2022-12-04] MEDS: NICOTINE 14 MG/24 HOURS TOPICAL PATCH TD SCH (10:22)
[2022-12-04] MEDS: METHOCARBAMOL 500 MG TABLET PO PRN ×2 (10:22→21:38)
[2022-12-04] MEDS: PRENATAL VITAMINS W/ FOLIC ACID TABLET (FP) PO SCH (10:22)
[2022-12-04] MEDS: hydrOXYzine PAMOATE 25 MG CAPSULE (FP) PO PRN ×2 (10:23→21:38)
[2022-12-04] MEDS: HYDROCORTISONE 2.5% TOPICAL CREAM 30 GM TUBE TP SCH ×2 (10:24→21:37)
[2022-12-04] MEDS ORDERED: LIDOCAINE 5% TOPICAL PATCH TP SCH (15:00)
[2022-12-04] MEDS: THIAMINE HCL 100 MG TABLET (FP) PO SCH (21:37)
[2022-12-04] MEDS: LIDOCAINE PATCH REMOVAL MC SCH (21:38)
[2022-12-05] MEDS: ARTIFICIAL TEARS (POLYVINYL ALCOHOL) OPTH DROPS OU SCH ×3 (06:40→21:25)
[2022-12-05 08:03] VITALS: RESP 18
[2022-12-05] MEDS: PRENATAL VITAMINS W/ FOLIC ACID TABLET (FP) PO SCH (10:13)
[2022-12-05] MEDS: METOPROLOL TARTRATE 25 MG TABLET (FP) PO SCH (10:13)
[2022-12-05] MEDS: LACTULOSE 20 GM/30 ML UDC (FOR ORAL USE ONLY) PO SCH ×4 (10:13→21:25)
[2022-12-05] MEDS: LIDOCAINE 5% TOPICAL PATCH TP SCH (10:14)
[2022-12-05] MEDS: NICOTINE 14 MG/24 HOURS TOPICAL PATCH TD SCH (10:15)
[2022-12-05] MEDS: HYDROCORTISONE 2.5% TOPICAL CREAM 30 GM TUBE TP SCH ×2 (10:15→21:40)
[2022-12-05] MEDS: METHOCARBAMOL 500 MG TABLET PO PRN ×2 (10:16→21:25)
[2022-12-05] MEDS: hydrOXYzine PAMOATE 25 MG CAPSULE (FP) PO PRN ×2 (10:16→21:25)
[2022-12-05] MEDS: NICOTINE 10 MG CARTRIDGE (INHALER) IH PRN ×3 (10:32→22:41)
[2022-12-05] MEDS: THIAMINE HCL 100 MG TABLET (FP) PO SCH (21:25)
[2022-12-05] MEDS: LIDOCAINE PATCH REMOVAL MC SCH (21:40)
[2022-12-06] MEDS: ARTIFICIAL TEARS (POLYVINYL ALCOHOL) OPTH DROPS OU SCH ×3 (07:01→21:28)
[2022-12-06] MEDS: METOPROLOL TARTRATE 25 MG TABLET (FP) PO SCH (09:55)
[2022-12-06] MEDS: PRENATAL VITAMINS W/ FOLIC ACID TABLET (FP) PO SCH (09:55)
[2022-12-06] MEDS: HYDROCORTISONE 2.5% TOPICAL CREAM 30 GM TUBE TP SCH ×2 (09:56→21:28)
[2022-12-06] MEDS: LIDOCAINE 5% TOPICAL PATCH TP SCH (09:56)
[2022-12-06] MEDS: NICOTINE 14 MG/24 HOURS TOPICAL PATCH TD SCH (09:57)
[2022-12-06] MEDS: LACTULOSE 20 GM/30 ML UDC (FOR ORAL USE ONLY) PO SCH ×4 (09:57→21:28)
[2022-12-06] MEDS: METHOCARBAMOL 500 MG TABLET PO PRN ×2 (09:58→21:29)
[2022-12-06] MEDS: NICOTINE 10 MG CARTRIDGE (INHALER) IH PRN ×3 (10:05→23:29)
[2022-12-06] MEDS: THIAMINE HCL 100 MG TABLET (FP) PO SCH (21:27)
[2022-12-06] MEDS: LIDOCAINE PATCH REMOVAL MC SCH (21:28)
[2022-12-06] MEDS: hydrOXYzine PAMOATE 25 MG CAPSULE (FP) PO PRN (21:30)
[2022-12-07] MEDS: ARTIFICIAL TEARS (POLYVINYL ALCOHOL) OPTH DROPS OU SCH ×3 (06:32→21:21)
[2022-12-07] MEDS: LIDOCAINE 5% TOPICAL PATCH TP SCH (10:31)
[2022-12-07] MEDS: LACTULOSE 20 GM/30 ML UDC (FOR ORAL USE ONLY) PO SCH ×4 (10:31→21:24)
[2022-12-07] MEDS: PRENATAL VITAMINS W/ FOLIC ACID TABLET (FP) PO SCH (10:32)
[2022-12-07] MEDS: NICOTINE 14 MG/24 HOURS TOPICAL PATCH TD SCH (10:32)
[2022-12-07] MEDS: METOPROLOL TARTRATE 25 MG TABLET (FP) PO SCH (10:33)
[2022-12-07] MEDS: HYDROCORTISONE 2.5% TOPICAL CREAM 30 GM TUBE TP SCH ×2 (10:42→21:21)
[2022-12-07] MEDS: NICOTINE 10 MG CARTRIDGE (INHALER) IH PRN ×2 (12:32→23:15)
[2022-12-07] MEDS: THIAMINE HCL 100 MG TABLET (FP) PO SCH (21:21)
[2022-12-07] MEDS: LIDOCAINE PATCH REMOVAL MC SCH (21:21)
[2022-12-07] MEDS: IBUPROFEN 400 MG TABLET (FP) PO PRN (21:22)
[2022-12-07] MEDS: METHOCARBAMOL 500 MG TABLET PO PRN (21:22)
[2022-12-07] MEDS: hydrOXYzine PAMOATE 25 MG CAPSULE (FP) PO PRN (21:23)
[2022-12-08] MEDS: ARTIFICIAL TEARS (POLYVINYL ALCOHOL) OPTH DROPS OU SCH ×3 (06:48→21:27)
[2022-12-08] MEDS: PRENATAL VITAMINS W/ FOLIC ACID TABLET (FP) PO SCH (09:46)
[2022-12-08] MEDS: HYDROCORTISONE 2.5% TOPICAL CREAM 30 GM TUBE TP SCH ×2 (09:46→22:05)
[2022-12-08] MEDS: LACTULOSE 20 GM/30 ML UDC (FOR ORAL USE ONLY) PO SCH ×4 (09:46→21:27)
[2022-12-08] MEDS: LIDOCAINE 5% TOPICAL PATCH TP SCH (09:46)
[2022-12-08] MEDS: METOPROLOL TARTRATE 25 MG TABLET (FP) PO SCH (09:47)
[2022-12-08] MEDS: METHOCARBAMOL 500 MG TABLET PO PRN ×2 (09:48→21:28)
[2022-12-08] MEDS: NICOTINE 14 MG/24 HOURS TOPICAL PATCH TD SCH (09:49)
[2022-12-08] MEDS: NICOTINE 10 MG CARTRIDGE (INHALER) IH PRN ×4 (10:10→22:41)
[2022-12-08] MEDS: THIAMINE HCL 100 MG TABLET (FP) PO SCH (21:27)
[2022-12-08] MEDS: hydrOXYzine PAMOATE 25 MG CAPSULE (FP) PO PRN (21:27)
[2022-12-08] MEDS: IBUPROFEN 400 MG TABLET (FP) PO PRN (21:29)
[2022-12-08] MEDS: LIDOCAINE PATCH REMOVAL MC SCH (22:05)
[2022-12-09] MEDS: ARTIFICIAL TEARS (POLYVINYL ALCOHOL) OPTH DROPS OU SCH (07:43)
[2022-12-09] MEDS: NICOTINE 10 MG CARTRIDGE (INHALER) IH PRN (09:03)
[2022-12-09] MEDS: HYDROCORTISONE 2.5% TOPICAL CREAM 30 GM TUBE TP SCH (09:03)
[2022-12-09] MEDS: NICOTINE 14 MG/24 HOURS TOPICAL PATCH TD SCH (09:03)
[2022-12-09] MEDS: METOPROLOL TARTRATE 25 MG TABLET (FP) PO SCH (09:05)
[2022-12-09] MEDS: PRENATAL VITAMINS W/ FOLIC ACID TABLET (FP) PO SCH (09:05)
[2022-12-09] MEDS: LIDOCAINE 5% TOPICAL PATCH TP SCH (09:05)
[2022-12-09] MEDS: LACTULOSE 20 GM/30 ML UDC (FOR ORAL USE ONLY) PO SCH (09:05)
[2022-12-09 10:45] VITALS: BP 138/86; PULSE 80; TEMP 97.4
== END 2022-12-09 09:55 | disposition home or self-care (01) | DRG 772 ==
LOC: YASAS 12:10 → Y5N 18:38
PROVIDERS: ADMIT Allergy & Immunology; ATTEND Allergy & Immunology
PROC: HZ42ZZZ Group Counseling for Substance Abuse Treatment, Cognitive-Behavioral (ICD-10-PCS; principal; 2022-11-13)
DX: F10.20 Alcohol dependence, uncomplicated (principal); F10.24 Alcohol dependence with alcohol-induced mood disorder; F17.210 Nicotine dependence, cigarettes, uncomplicated; F10.282 Alcohol dependence with alcohol-induced sleep disorder; F19.282 Other psychoactive substance dependence with psychoactive substance-induced sleep disorder; F19.280 Other psychoactive substance dependence with psychoactive substance-induced anxiety disorder; F19.24 Other psychoactive substance dependence with psychoactive substance-induced mood disorder; G62.1 Alcoholic polyneuropathy; I10 Essential (primary) hypertension; K59.00 Constipation, unspecified; L02.32 Furuncle of buttock; M25.511 Pain in right shoulder; M25.512 Pain in left shoulder; G89.29 Other chronic pain; R60.0 Localized edema
CPT/HCPCS: 36415; 80053; 81003; 82140; 82962; 85027; 86780; 86803; C9803-CS; U0003; U0005